=== PATIENT | male | born 1960 | race African-American/Black ===

== ENCOUNTER → 2017-10-10 | Day surgery (SDC) | payer OTHER, MEDICARE ==
[~2017-10-10] MED LIST: LIDOCAINE 2% PF Vial for OR 5 ML VIAL.; PROPOFOL 20 ML IV
[2017-10-10] MEDS: IV RINGERS,LACTATED 1000ML 1,000 ML IV (12:16)
[2017-10-10 12:24] LABS: POC GLUCOSE 253 mg/dL (70-99)
== END | disposition home or self-care (01) ==
LOC: ENDOS 11:11
DX: K22.2 Esophageal obstruction (principal); K29.50 Unspecified chronic gastritis without bleeding; Z88.0 Allergy status to penicillin; K21.9 Gastro-esophageal reflux disease without esophagitis; E11.9 Type 2 diabetes mellitus without complications; Z82.3 Family history of stroke; Z82.49 Family history of ischemic heart disease and other diseases of the circulatory system; Z72.0 Tobacco use; Z79.4 Long term (current) use of insulin; Z79.84 Long term (current) use of oral hypoglycemic drugs; Z79.899 Other long term (current) drug therapy; Z98.890 Other specified postprocedural states
CPT/HCPCS: 43235; 82962; J2001; J2704

== ENCOUNTER → 2018-01-16 | Outpatient (CLI) | payer MEDICARE, OTHER ==
[2017-10-10 13:19] VITALS: BP 117/68
[~2018-01-16] MED LIST changes: +AMIT10TA PO; +ESOM20CA PO; +GABA600T2 PO; +HUM100VI5 SQ; +INSU100I13 SQ; +INSU100V31 SQ; -LIDOCAINE 2% PF Vial for OR 5 ML VIAL.; +METF500T16 PO; +MULT1TAB52 PO; +NAPR-514 PO; -PROPOFOL 20 ML IV; +SUCR1ORA11 PO
[2018-01-16 11:09] LABS: ALBUMIN 3.4 g/dL (3.4-5.0); CALCIUM 8.9 mg/dL (8.5-10.1); CREATININE 1.1 mg/dL (0.7-1.3); GFR 83.2; POTASSIUM 3.8 mmol/L (3.5-5.1); TOTAL BILIRUBIN 0.6 mg/dL (0.2-1.0)
[2018-01-16 11:38] LABS: BASO % 1 % (0-3); EOS # 0.2 x10^3/uL (0.0-0.7); EOS % 8 % (0-3); HEMATOCRIT 41.4 % (39.0-53.0); LYMPH # 1.2 x10^3/uL (1.0-4.8); LYMPH % 38 % (24-48); MEAN CORPUSCULAR HEMOGLOBIN 28 pg (25-35); MEAN CORPUSCULAR HGB CONC 34 g/dL (31-37); MEAN CORPUSCULAR VOLUME 82 fL (79-100); MONO # 0.6 x10^3/uL (0.0-1.1); MONO % 18 % (0-9); NEUT # 1.1 x10^3uL (1.8-7.7); NEUT % 36 % (31-73); PLATELET COUNT 137 x10^3/uL (140-400); RED BLOOD COUNT 5.04 x10^6/uL (4.30-5.70); RED CELL DISTRIBUTION WIDTH 13.5 % (11.5-14.5); WHITE BLOOD COUNT 3.1 x10^3/uL (4.0-11.0)
[2018-01-17 02:14] LABS: HEMOGLOBIN A1C 13.9 % (4.8-5.6)
== END | disposition home or self-care (01) ==
LOC: SURGPAT 10:11
PROVIDERS: ATTEND Surgery
DX: Z01.818 Encounter for other preprocedural examination (principal); K82.8 Other specified diseases of gallbladder; E11.9 Type 2 diabetes mellitus without complications
CPT/HCPCS: 36415; 80048; 82040; 82247; 83036; 85025

== ENCOUNTER → 2018-01-27 | Day surgery (SDC) | payer MEDICARE, OTHER ==
[~2018-01-27] VITALS: Ht 175.3 cm; Wt 93.4 kg
[~2018-01-27] MED LIST changes: +BUPIVAC MPF-EPI 0.5%-1:200000 30 ML VIAL. ONE; +DEXAMETHASONE SOD PHOS 20 MG/5 ML VIAL. ONE; +GLUCAGON,HUMAN RECOMBINANT 1 MG/ML VIAL. ONE; +HYDROmorphone 2 MG/ML VIAL IV PRN; +INSULIN LISPRO 100 UNIT/ML 3ML VIAL. SQ ONE; +IOHEXOL 300 MG/ML 100ML VIAL. ONE; +IV RINGERS,LACTATED 1000ML 1,000 ML IV SCH; +LIDOCAINE 1% PF 2 ML VIAL. ID PRN; +LIDOCAINE 2% PF Vial for OR 5 ML VIAL. ONE; +MORPHINE SULFATE 2 MG/ML VIAL. IV PRN; +ONDANSETRON PF 4 MG/2 ML VIAL. IV PRN; +ONDANSETRON PF 4 MG/2 ML VIAL. ONE; +PROCHLORPERAZINE 10 MG/2 ML VIAL. IV PRN; +PROPOFOL 0 ML IV ONE; +ROCURONIUM 50 MG/5 ML VIAL. ONE; +SURGICEL HEMOSTAT 4X8 EACH. ONE; +fentaNYL PF VIAL 100 MCG/2 ML VIAL IV PRN
[2018-01-27 07:12] VITALS: BP 123/97
== END | disposition home or self-care (01) ==
LOC: SURG 06:40
PROVIDERS: ATTEND Surgery
DX: K82.8 Other specified diseases of gallbladder (principal); R73.9 Hyperglycemia, unspecified; R13.10 Dysphagia, unspecified; Z98.890 Other specified postprocedural states; Z88.0 Allergy status to penicillin; Z53.8 Procedure and treatment not carried out for other reasons
CPT/HCPCS: 82962; J1100; J1610; J1956; J2001; J2405; J2704; J3490; Q9967

== ENCOUNTER → 2018-05-12 | Outpatient (CLI) | payer MEDICARE, OTHER ==
[2018-01-27 07:12] VITALS: BP 123/97
[~2018-05-12] MED LIST changes: +ASPI81TA50 PO; +BUDE10.2 IH; -BUPIVAC MPF-EPI 0.5%-1:200000 30 ML VIAL. ONE; -DEXAMETHASONE SOD PHOS 20 MG/5 ML VIAL. ONE; -GABA600T2 PO; +GABA600T7 PO; -GLUCAGON,HUMAN RECOMBINANT 1 MG/ML VIAL. ONE; -HYDROmorphone 2 MG/ML VIAL IV PRN; +INSU100C4 SQ; -INSULIN LISPRO 100 UNIT/ML 3ML VIAL. SQ ONE; -IOHEXOL 300 MG/ML 100ML VIAL. ONE; -IV RINGERS,LACTATED 1000ML 1,000 ML IV SCH; -LIDOCAINE 1% PF 2 ML VIAL. ID PRN; -LIDOCAINE 2% PF Vial for OR 5 ML VIAL. ONE; -MORPHINE SULFATE 2 MG/ML VIAL. IV PRN; -ONDANSETRON PF 4 MG/2 ML VIAL. IV PRN; -ONDANSETRON PF 4 MG/2 ML VIAL. ONE; -PROCHLORPERAZINE 10 MG/2 ML VIAL. IV PRN; -PROPOFOL 0 ML IV ONE; -ROCURONIUM 50 MG/5 ML VIAL. ONE; -SURGICEL HEMOSTAT 4X8 EACH. ONE; -fentaNYL PF VIAL 100 MCG/2 ML VIAL IV PRN
[2018-05-12 15:04] LABS: BASO % 1 % (0-3); EOS # 0.3 x10^3/uL (0.0-0.7); EOS % 9 % (0-3); HEMATOCRIT 42.3 % (39.0-53.0); HEMOGLOBIN 13.8 g/dL (13.0-17.5); LYMPH # 1.2 x10^3/uL (1.0-4.8); LYMPH % 40 % (24-48); MEAN CORPUSCULAR HEMOGLOBIN 27 pg (25-35); MEAN CORPUSCULAR HGB CONC 33 g/dL (31-37); MEAN CORPUSCULAR VOLUME 83 fL (79-100); MONO # 0.3 x10^3/uL (0.0-1.1); MONO % 8 % (0-9); NEUT # 1.3 x10^3uL (1.8-7.7); NEUT % 42 % (31-73); PLATELET COUNT 126 x10^3/uL (140-400); RED BLOOD COUNT 5.13 x10^6/uL (4.30-5.70); RED CELL DISTRIBUTION WIDTH 13.6 % (11.5-14.5)
[2018-05-12 15:19] LABS: ALBUMIN 3.4 g/dL (3.4-5.0); CALCIUM 8.6 mg/dL (8.5-10.1); CREATININE 1.1 mg/dL (0.7-1.3); GFR 83.2; POTASSIUM 4.1 mmol/L (3.5-5.1); TOTAL BILIRUBIN 0.6 mg/dL (0.2-1.0)
== END | disposition home or self-care (01) ==
LOC: SURGPAT 14:30
PROVIDERS: ATTEND Surgery
DX: Z01.818 Encounter for other preprocedural examination (principal); K83.8 Other specified diseases of biliary tract
CPT/HCPCS: 36415; 80048; 82040; 82247; 85025

== ENCOUNTER 2018-05-19 06:14 | Day surgery (SDC) | payer MEDICARE, OTHER ==
[~2018-05-19] VITALS: Ht 175.3 cm; Wt 97.1 kg
[2018-05-19] MEDS ORDERED: ROCURONIUM 50 MG/5 ML VIAL. ONE (07:12)
[2018-05-19] MEDS ORDERED: SUCCINYLCHOLINE 200 MG/10 ML VIAL. ONE (07:12)
[2018-05-19] MEDS ORDERED: fentaNYL PF VIAL 100 MCG/2 ML VIAL ONE (07:12)
[2018-05-19] MEDS ORDERED: LIDOCAINE 2% PF Vial for OR 5 ML VIAL. ONE (07:12)
[2018-05-19] MEDS ORDERED: PROPOFOL 20 ML IV ONE (07:12)
[2018-05-19] MEDS ORDERED: DEXTROSE 50% 25 GM / 50ML DISP.SYRIN. IV ONE ×3 (07:30→07:45)
[2018-05-19] MEDS ORDERED: DEXTROSE 25% 10 ML DISP.SYRIN. IV ONE (07:30)
[2018-05-19] MEDS ORDERED: BUPIVAC MPF-EPI 0.5%-1:200000 30 ML VIAL. ONE (07:35)
[2018-05-19] MEDS ORDERED: IOHEXOL 300 MG/ML 100ML VIAL. ONE (07:35)
[2018-05-19] MEDS ORDERED: GLUCAGON,HUMAN RECOMBINANT 1 MG/ML VIAL. ONE (07:53)
[2018-05-19] MEDS ORDERED: DEXAMETHASONE SOD PHOS 20 MG/5 ML VIAL. ONE (07:59)
[2018-05-19] MEDS ORDERED: DESFLURANE 16 TO 30 MINUTES. IH ONE (07:59)
[2018-05-19] MEDS ORDERED: GLYCOPYRROLATE 1 MG/5 ML VIAL. ONE (08:12)
[2018-05-19] MEDS ORDERED: NEOSTIGMINE 10 MG/10 ML VIAL. ONE (08:12)
[2018-05-19] MEDS ORDERED: ONDANSETRON PF 4 MG/2 ML VIAL. ONE (08:12)
[2018-05-19] MEDS ORDERED: SURGICEL HEMOSTAT 4X8 EACH. ONE (08:38)
--- NOTE | 2018-05-19 08:48 | RAD ---
EXAM: Intraoperative cholangiogram. HISTORY: Cholecystectomy. COMPARISON: None. FINDINGS: 4 fluoroscopic images were obtained during an intraoperative cholangiogram. The images demonstrate contrast opacification of the biliary tree and proximal duodenum. There is mild dilatation of the intrahepatic bile ducts and common bile duct extending to segmental narrowing of the distal common bile duct proximal to the ampulla. There is slight irregular contour of the region of segmental narrowing. The total fluoroscopy time is not submitted with the images. IMPRESSION: Intraoperative galactogram demonstrating mild biliary ductal dilatation with a short segment of narrowing and luminal irregularity involving the distal common bile duct proximal to the ampulla. This may be due to a spasm or stricture. The imaging appearance does not favor a retained stone. Electronically signed by: Lizzy Cheek MD (05/19/2018 8:43 AM) [facility]
[2018-05-19] MEDS ORDERED: KETOROLAC 30 MG/ML INJ FOR OR. INJ ONE (08:49)
[2018-05-19] MEDS ORDERED: IV RINGERS,LACTATED 1000ML 1,000 ML IV SCH (09:11)
[2018-05-19] MEDS ORDERED: PROCHLORPERAZINE 10 MG/2 ML VIAL. IV PRN (09:15)
[2018-05-19] MEDS ORDERED: fentaNYL PF VIAL 100 MCG/2 ML VIAL IV PRN (09:15)
[2018-05-19] MEDS ORDERED: HYDROmorphone 2 MG/ML VIAL IV PRN (09:15)
[2018-05-19] MEDS ORDERED: MORPHINE SULFATE 4 MG/ML VIAL. IV PRN (09:15)
[2018-05-19] MEDS ORDERED: LIDOCAINE 1% PF 2 ML VIAL. ID PRN (09:15)
--- NOTE | 2018-05-19 09:22 | PDOC ---
BRIEF OPERATIVE NOTE Date: May 19, 2018 Pre-Op Diagnosis biliary sludge Post-Op Diagnosis same Procedure Performed l/s claudette with grams Surgeon Deandre Anesthesia Type: General Blood Loss 20cc IV Fluid 800cc Specimens Obtained GB Findings supple GB, normal grams Complications none Operative Note # [id number] BACILIO DUNNE MD May 19, 2018 09:22
--- NOTE | 2018-05-19 09:23 | DISCH ---
DISCHARGE INSTRUCTIONS Condition on Discharge Condition on Discharge: Stable Activity After Discharge Activity Instructions for Disc: Activity as tolerated, Avoid exertion Lifting Instructions after Dis: No heavy lifting Driving Instructions after Dis: Do not drive (2-3 days) Diet after Discharge Diet after Discharge: Regular Wound Incision Care Wound/Incision Care: Ice to area for comfort Follow-Up Follow up with: Deandre end of the week BACILIO DUNNE MD May 19, 2018 09:23
--- NOTE | 2018-05-19 09:56 | OP ---
DATE OF SURGERY: 05/19/2018 PREOPERATIVE DIAGNOSIS: Biliary sludge. POSTOPERATIVE DIAGNOSIS: Biliary sludge. PROCEDURE: Laparoscopic cholecystectomy with Graharabella. SURGEON: Duane Dunne MD ANESTHESIA: General endotracheal. ESTIMATED BLOOD LOSS: 20 mL. INTRAVENOUS FLUID: 800 mL. INDICATIONS: The patient is a 57-year-old with postprandial epigastric and right upper quadrant pain. Scan shows sludge in his gallbladder. He is brought for cholecystectomy. OPERATIVE FINDINGS: The liver was smooth and sharp. The gallbladder was supple. Cholangiograms were normal. Visual inspection of the remainder of the abdomen failed to reveal obvious abnormalities. DESCRIPTION OF PROCEDURE: The patient was brought to the operating suite, given a general endotracheal anesthetic and the abdomen prepped and draped in usual sterile fashion. A supraumbilical incision was infiltrated with local anesthetic, incised and a 5 mm Visiport used to safely gain access into the abdominal cavity. Pneumoperitoneum established. Camera inserted. Inspection carried out with results as noted above. With the table in reverse Trendelenburg rolled to the left, the epigastric and midclavicular and lateral ports were placed under direct vision. The gallbladder was retracted superolaterally and the cystic duct and cystic artery were carefully exposed. The duct was clipped on the gallbladder side. Cholangiograms were made. These were without evidence of obstructing retained stone. In light of this, the catheter was removed. The cystic duct was clipped x 3 and divided, taking care to avoid injury or compromise of the common duct. Cystic artery was clipped x 2 and divided and gallbladder freed from the bed with cautery dissection and placed in an EndoCatch bag. Table returned to level. Gallbladder delivered through the epigastric incision. Epigastric incision closed with interrupted 0 Vicryl suture. Intra-abdominal pressure decreased to 6 cm of water. No bleeding from the epigastric closure or from the midclavicular port site after its removal. A 19-[place] Island[place] round Chava drain was brought through the epigastric port out the lateral port, sewn to the skin with silk stitch and left in the subhepatic space for postoperative drainage. Abdomen decompressed, camera slowly removed, no bleeding seen. Skin incisions closed with subcuticular 4-0 Monocryl. Steri-Strips and sterile dressings applied. The patient was awakened from his anesthetic and taken to the recovery room in satisfactory condition. DUANE DUNNE MD DR: Sandy JOB#: [id number] / [id number]
[2018-05-19] MEDS: fentaNYL PF VIAL 100 MCG/2 ML VIAL IV PRN ×2 (10:04→10:12)
--- NOTE | 2018-05-19 11:09 | NUR ---
Dr Carrera paged for discharge order as well as po pain medication for home. Patient ate eveline crackers and apple juice prior to discharge.
[2018-05-19] MEDS ORDERED: oxyCODONE/APAP 5/325 1 TAB TABLET ONE (11:41)
--- NOTE | 2018-05-19 11:42 | NUR ---
Dr Carrera called. Order for discharge and percocet 5/325 mg po x [address] Carrera will drop off Percocet order at [facility] ER and patient family will mushroom picker prescription.
[2018-05-19 11:50] VITALS: BP 143/80
[2018-05-19] MEDS ORDERED: oxyCODONE/APAP 5/325 1 TAB TABLET PO ONE (12:00)
--- NOTE | 2018-05-21 09:10 | PATHOLOGY ---
[facility] Accession Number: [id number] . 01 Material submitted: . GALLBLADDER . 01 Clinical history: . Cholecystitis . 02 Diagnosis: Gallbladder, laparoscopic cholecystectomy: - Chronic cholecystitis, mild. 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 02 Comment: There are no calculi identified within the gallbladder lumen or specimen container. Sections of the gallbladder show focal mild chronic inflammation. There is no evidence of malignancy. 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 02 Electronically signed: . Dipak Levi MD, Pathologist NPI- [id number] . 01 Gross description: . The specimen is received in formalin, labeled "Mariano Carrion, TERRY, gallbladder" and consists of an intact green-salcido, smooth, and shiny gallbladder measuring 11.1 x 4.0 x 3.5 cm. The margin is inked black. Opening reveals a lumen filled with green bile and no calculi. The mucosa is green-brown and smooth with an average wall thickness of 0.1 cm. No masses or lesions are identified. Sales Review Clerk sections are submitted in A1. (SDY; 05/19/2018) SYU/SYU . 02 Pathologist provided ICD-10: K81.1 . 02 CPT . 900397 Specimen Comment: A courtesy copy of this report has been sent to Specimen Comment: [phone], . Specimen Comment: Report sent to / DR BUSTAMANTE Performed at: 01 [facility] [address], [place], [place] [id number] MD Juan Luis Chavez MD Phone: [phone] Performed at: 02 [facility] [place] [place] [address] [place], [place] [id number] MD Dipak Levi MD Phone: [phone]
== END 2018-05-19 12:00 | disposition home or self-care (01) ==
LOC: SURG 06:14
PROVIDERS: ATTEND Surgery
DX: K81.1 Chronic cholecystitis (principal); Z88.0 Allergy status to penicillin; K21.9 Gastro-esophageal reflux disease without esophagitis; Z79.899 Other long term (current) drug therapy; Z79.4 Long term (current) use of insulin; E11.49 Type 2 diabetes mellitus with other diabetic neurological complication; E11.40 Type 2 diabetes mellitus with diabetic neuropathy, unspecified; Z98.890 Other specified postprocedural states; Z87.891 Personal history of nicotine dependence
CPT/HCPCS: 47563; 74300; 82962; A7015; J0330; J0780; J1100; J1885; J1956; J2001; J2405; J2704; J2710; J3010; J3490; J7030; Q9967; J1610; J7042

== ENCOUNTER → 2018-09-29 | Outpatient (CLI) | payer MEDICARE, OTHER ==
[2018-05-29 15:00] VITALS: BP 101/62
[~2018-09-29] MED LIST changes: +AMIT25TA PO
== END | disposition home or self-care (01) ==
LOC: SPEC 18:00
PROVIDERS: ATTEND Podiatrist Foot & Ankle Surgery
DX: E11.621 Type 2 diabetes mellitus with foot ulcer (principal)
CPT/HCPCS: 87071; 87075

== ENCOUNTER → 2019-10-16 | Outpatient (CLI) | payer OTHER, MEDICAID ==
[2018-05-29 15:00] VITALS: BP 101/62
[~2019-10-16] MED LIST changes: +MULT-445 PO; -MULT1TAB52 PO; -SUCR1ORA11 PO; +SUCR1ORA14 PO
--- NOTE | 2019-10-16 14:15 | KCIC ---
BRAIN W/O CONTRAST History:Reason: HEADACHES / Spl. Instructions: / History: Pt/ c/o hadaches 3-4 days, dizziness, unsteady gait Technique: Multiplanar, multi sequential MR imaging was performed of the brain without contrast. Comparison: CT July 30, 2013 Findings: No acute infarct. No intracranial hemorrhage. No mass effect. No hydrocephalus. Mild foci of FLAIR hyperintensities within the hemispheric white matter, most often due to chronic microvascular ischemia. Chronic bilateral cerebellar infarcts, right greater than left. Imaged orbits are unremarkable. Moderate right maxillary sinus mucosal thickening. Additional scattered paranasal sinus mucosal thickening. Mastoid air cells are clear. Impression: 1. No acute intracranial abnormality. 2. Chronic bilateral cerebellar infarcts, right greater than left. 3. Mild sequelae of chronic microvascular ischemia. 4. Paranasal sinus disease most prominent within the right maxillary sinus. Electronically signed by: Tiago Solitario DO (10/16/2019 2:12 PM) [id number]
== END | disposition home or self-care (01) ==
LOC: KCIC MRI 12:41
PROVIDERS: ATTEND Physician Assistant Medical
DX: I67.82 Cerebral ischemia (principal); I63.9 Cerebral infarction, unspecified; J34.89 Other specified disorders of nose and nasal sinuses
CPT/HCPCS: 70551

== ENCOUNTER → 2020-01-15 | Outpatient (CLI) | payer OTHER, MEDICAID ==
[2018-05-29 15:00] VITALS: BP 101/62
[~2020-01-15] MED LIST changes: +REGADENOSON 0.4 MG/5 ML DISP.SYRIN. IV ONE
--- NOTE | 2020-01-15 10:15 | RAD ---
DUPLEX LOWER EXTREMITY BILAT, SANJAY ART STUDY LOWER EXTREM AMAURY 01/15/2020 12:30 PM INDICATION: Peripheral arterial disease COMPARISON: None available. TECHNIQUE: Sonographic evaluation of bilateral lower extremity arterial system was performed utilizing grayscale, color Doppler and spectral waveform analysis. ABIs were obtained. Findings: SANJAY: Right: Brachial: 128 Posterior tibial artery: 151 Dorsalis pedis artery: 145 Left: Brachial: 111 Posterior tibial artery: 127 Dorsalis pedis artery: 143 Right SANJAY: 1.2 Left SANJAY: 1.1 Right lower extremity: Triphasic waveforms identified throughout the right lower extremity. Mild noncalcified atheromatous plaque is identified. Common femoral artery: 112 cm/s Profunda artery: 72 cm/s Superficial femoral artery, proximal: 75 cm/s Superficial femoral artery, mid: 83 cm/s Superficial femoral artery, distal: 90 cm/s Popliteal artery: 43 cm/s Posterior tibial artery: 56-68 cm/s Anterior tibial artery: 31 cm/s Peroneal artery: 41 cm/s Dorsalis pedis artery: 64 cm/s Left lower extremity: Triphasic waveforms identified throughout the left lower extremity. Mild noncalcified atheromatous plaque is noted. Common femoral artery: 86 cm/s Profunda artery: 63 cm/s Superficial femoral artery, proximal: 87 cm/s Superficial femoral artery, mid: 86 cm/s Superficial femoral artery, distal: 76 cm/s Popliteal artery: 67 cm/s Posterior tibial artery: 37-73 cm/s Anterior tibial artery: 67 cm/s Peroneal artery: 25 cm/s Dorsalis pedis artery: 72 cm/s IMPRESSION: No hemodynamically significant stenosis involving the bilateral lower extremity arterial system. Normal ABIs bilaterally. Electronically signed by: Diane Valdez MD (01/15/2020 10:12 AM) [facility]
--- NOTE | 2020-01-15 15:51 | RAD ---
MR#: [id number] Date of Study: 01/15/2020 Ordering Physician: MERRILL DUENAS, Referring Physician: DEENA CHO Tech: Abelardo Muir RT (R) (N) APPROVED REPORT Test Type: Pharmacological Stress Nurse/Tech: Elsy Boyle R.N. Test Indications: Dyspnea Cardiac History: Family history, Diabetes Medications: See Electronic Medical Record Medical History: See Electronic Medical Record Resting ECG: NSR Resting Heart Rate: 86 bpm Resting Blood Pressure: 111/62mmHg Pretest Chest Pain: No chest pain Nurse/Tech Notes S1S2, lungs sound clear Consent: The procedure was explained to the patient in lay terms. Informed consent was witnessed. Lane eout was entered into [employer]. History and Stress Test performed by Elsy Boyle R.N. Pharm. Details Pharmacologic stress testing was performed using 0.4mg per 5ml of regadenoson given intravenously ove r 7-10 seconds. Stress Symptoms Dyspnea POST EXERCISE Reason for Termination: Infusion complete Target HR: 136 Max HR: 98 bpm Max Blood Pressure: 102/60mmHg Blood Pressure response to exercise: Abnormal blood pressure response during stress. Chest Pain: No. Arrhythmia: No. ST Change: No. INTERPRETATION Stress EKG Conclusion: Baseline EKG showed sinus rhythm. No ischemic changes at peak stress. No arr hythmias. Imaging Protocol IMAGE PROTOCOL: Rest Tc-99m/stress Tc-99m 1 day Rest: Stress: Viability: Radiopharm.Tc99m XqhmxnsctOs86z Sestamibi Dose10.5mCi 30.4mCi Duration 15min. 15min. Img Date 01/15/2020 01/15/2020 Inj-Img [id number]. 60min. Rest Admin Site:IV - Right AntecubitalAdministrator:RT Ernestine (R)(N) Stress Admin Site: IV - Right AntecubitalAdministrator: RT Ernestine (R)(N) STRESS DATA End Diast. Vol.103.0mlLVEDV index BSA49.0ml End Syst. Vol.42.0mlLVESV index BSA20.0ml Myocardial Hwbh558.0gEject. Ulmucuuw17.0% Stress Scores Regional WT1.00Summed WT11.00 Regional WM0.00Summed WM9.00 LV Perfusion Scintigraphic images showed fixed defect involving the inferior wall most probably diaphragmatic atte nuation artifact based on normal wall motion. No other fixed or reversible defects seen. Wall Motion Normal left ventricle systolic function with ejection fraction calculated at 59%. LV Perf. Quant 17 Seg. SSS5.00 17 Seg. SRS7.00 17 Seg. SDS0.00 Stress Defect Extent (% LAD)0.00Rest Defect Extent (% LAD)0.00Rev. Defect Extent (% LAD)0.00 Stress Defect Extent (% LCX) 21.30Rest Defect Extent (% LCX)35.00Rev. Defect Extent (% LCX)3.80 Stress Defect Extent (% RCA)10.00Rest Defect Extent (% RCA)16.70Rev. Defect Extent (% RCA)0.00 Stress Defect Extent (% COOPER)7.60Rest Defect Extent (% COOPER)15.00Rev. Defect Extent (% COOPER)0.70 Conclusion 1. Regadenoson cardioisotope stress test showed diaphragmatic attenuation artifact without any eviden ce of ischemia or infarct. 2. Normal left ventricular systolic function with ejection fraction calculated at 59%. 3. Low risk for cardiac events. Signed by : Bossman Johns, Electronically Approved : 01/15/2020 15:50:42
--- NOTE | 2020-01-15 15:52 | CARD ---
MR#: [id number] Date of Study: 01/15/2020 Ordering Physician: MERRILL DUENAS, Referring Physician: MERRILL DUENAS, Tech: Gala Rosales APPROVED REPORT EXAM: Two-dimensional and M-mode echocardiogram with Doppler and color Doppler. Other Information Quality : AverageHR: 85bpm INDICATION Dyspnea RISK FACTORS Diabetes 2D DIMENSIONS Left Atrium(2D)2.7 (1.6-4.0cm)IVSd1.1 (0.7-1.1cm) Aortic Root(2D)4.1 (2.0-3.7cm)LVDd5.3 (3.9-5.9cm) LVOT Diameter2.4 (1.8-2.4cm)PWd1.0 (0.7-1.1cm) LVDs3.7 (2.5-4.0cm)LVEF(%)57.0 (>50%) Aortic Valve AoV Peak Abraham.100.2cm/sAoV VTI15.8cm AO Peak GR.4.0mmHgLVOT Peak Abraham.90.2cm/s LVOT VTI 14.69cmAO Mean GR.2mmHg Mitral Valve MV E Msbeokuj64.5cm/sMV A Iizzaudh89.4cm/s E/A Ratio0.6 TDI E/Lateral E'3.7E/Medial E'6.4 Pulmonary Valve PV Peak Iqfmifqv87.7cm/sPV Peak Grad.2mmHg Tricuspid Valve TR P. Zxigjqcg275rx/sRAP TXTCTPOO2fxFz TR Peak Gr.11ceMuSYVH76ofKm Pulmonary Vein PVa [id number] LEFT VENTRICLE The left ventricle is normal size. There is normal left ventricular wall thickness. The left ventricu lar systolic function is normal. The Ejection Fraction is 60-65%. There is normal LV segmental wall m otion. Transmitral Doppler flow pattern is Grade I-abnormal relaxation pattern. RIGHT VENTRICLE The right ventricle is normal size. The right ventricle is mildly hypertrophied. The right ventricula r systolic function is normal. ATRIA The left atrium size is normal. The right atrium size is normal. The interatrial septum is intact wit h no evidence for an atrial septal defect or patent foramen ovale as noted on 2-D or Doppler imaging. AORTIC VALVE The aortic valve is normal in structure and function. Doppler and Color Flow revealed no significant aortic regurgitation. There is no significant aortic valvular stenosis. Calculated aortic valve area is 4.2 cm2 with maximum pressure gradient of 5 mmHg and mean pressure gradient of 2 mmHg. MITRAL VALVE The mitral valve is normal in structure and function. There is no evidence of mitral valve prolapse. There is no mitral valve stenosis. Doppler and Color Flow revealed no mitral valve regurgitation note d. TRICUSPID VALVE The tricuspid valve is normal in structure and function. Doppler and Color Flow revealed trace tricus pid regurgitation with an estimated PAP of 27 mmHg. There is no tricuspid valve stenosis. PULMONIC VALVE The pulmonic valve is not well visualized. Doppler and Color Flow revealed no pulmonic valvular regur gitation. GREAT VESSELS The aortic root is mildly enlarged measuring 4.17 cm. The IVC is normal in size and collapses >50% wi th inspiration. PERICARDIAL EFFUSION There is no evidence of significant pericardial effusion. Critical Notification Critical Value: No <Conclusion> The left ventricular systolic function is normal. The Ejection Fraction is 60-65%. There is normal LV segmental wall motion. Transmitral Doppler flow pattern is Grade I-abnormal relaxation pattern. Trace tricuspid regurgitation with an estimated PAP of 27 mmHg. There is no evidence of significant pericardial effusion. Signed by : Bossman Johns, Electronically Approved : 01/15/2020 15:52:20
== END ==
LOC: NM 08:59
PROVIDERS: ATTEND Internal Medicine Cardiovascular Disease
DX: I70.203 Unspecified atherosclerosis of native arteries of extremities, bilateral legs (principal); R06.00 Dyspnea, unspecified; I51.7 Cardiomegaly
CPT/HCPCS: 78452; 93017; 93306; 93922; 93925; A9500; J2785